=== PATIENT | male | born 1990 | race Caucasian/White ===

== ENCOUNTER → 2019-08-22 13:54 | Outpatient (CLI) | payer OTHER, SELFPAY ==
[2019-08-22 16:19] LABS: Cholesterol 209 mg/dL (200); Creatinine, Serum 0.92 mg/dL (0.70-1.30); EST Glomerular Filtration Rate 103 mL/min (>60); Est Glom Filt Rate - Afr Amer 125 mL/min (>60); High Density Lipoprotein 43 mg/dL; Thyroid Stim Hormone (TSH) 0.76 uIU/mL (0.358-3.74); Triglycerides 151 mg/dL; Very Low Density Lipoprotein 30 mg/dL (5-40)
== END ==
DX: F31.31 Bipolar disorder, current episode depressed, mild (principal)
CPT/HCPCS: 36415; 80061; 80178; 82565; 84443